=== PATIENT | female | born 1975 | race Caucasian/White ===

== ENCOUNTER 2017-10-14 15:50 | Emergency (ER) | payer OTHER ==
[~2017-10-14] VITALS: Ht 157.5 cm; Wt 87.1 kg
[2017-10-14 16:02] VITALS: BP_SYST 96
[2017-10-14] MEDS ORDERED: MORPHINE 4 MG/ML INJ. SYRINGE IM ONE (17:15)
[2017-10-14] MEDS ORDERED: ONDANSETRON 4 MG ODT TAB PO ONE (17:15)
[2017-10-14 20:00] VITALS: BP_SYST 110
== END 2017-10-14 20:00 | disposition home or self-care (01) ==
LOC: SED 15:50
DX: S52.022A Displaced fracture of olecranon process without intraarticular extension of left ulna, initial encounter for closed fracture (principal); Z88.5 Allergy status to narcotic agent; Z88.8 Allergy status to other drugs, medicaments and biological substances; W01.0XXA Fall on same level from slipping, tripping and stumbling without subsequent striking against object, initial encounter; Y93.64 Activity, baseball; Y92.39 Other specified sports and athletic area as the place of occurrence of the external cause; Y99.8 Other external cause status
CPT/HCPCS: 29105; 73080; 96372; 99284; J2270; Q0162